=== PATIENT | female | born 1960 | race Caucasian/White ===

== ENCOUNTER 2016-10-05 09:02 | Day surgery (SDC) | payer OTHER ==
[~2016-10-05 09:02] MED LIST: RINGERS SOLUTION,LACTATED 1,000 ML IV PRN
[2016-10-05] MEDS ORDERED: RINGERS SOLUTION,LACTATED 1,000 ML IV ONE (09:40)
--- OUTSIDE RECORDS SUMMARY | 2016-10-05 10:29 | XMS REPORT | Continuity of Care Document ---
:1960 Author Organization [facility] ([facility]) Address [address] [place] [address] Phone [phone] Care Team Providers Name Role Phone Provider, No-Primary Care Primary Care Provider Unavailable Source Comments This disclosure is being made pursuant to the Care Everywhere program, applicable federal and state laws, and may not contain all informaitonavailable regarding this patient.[facility] ([facility]) Active Allergies and Adverse Reactions Allergen Noted Date Severity Reactions Comments Meloxicam 03/29/2011 OTHER Fidgety-could not sit still Piroxicam 03/29/2011 Nausea & Vomiting "made me sick to my stomach" Sulfa (Sulfonamide 03/12/2010 Rash Antibiotics) Current Medications Prescription Sig. Disp. Refills Start Date End Date Status Comp 2 pairs compression 1 Each 0 08/13/2012 Active Stocking,Knee,Regula stockings Indications: r,Sml (T.E.D. edema ANTI-EMBOLISM STOCKING) Misc sodium fluoride 1.1 1 application by Dental 51 g 11 01/09/2013 Active % dental cream route at bedtime. Nothing by mouth for 30 minutes after brushing. Indications: PREVENTION OF DENTAL CARIES ranitidine 150 mg Take 1 Tab by mouth 2 60 Tab 11 03/01/2013 Active tablet times daily. Indications: GASTROESOPHAGEAL REFLUX naproxen 500 mg Take 1 Tab by mouth 2 60 Tab 11 03/19/2013 Active tablet times daily as needed. Indications: PAIN loratadine 10 mg Take 1 Tab by mouth 30 Tab 11 09/30/2013 Active tablet daily. Indications: ALLERGIC RHINITIS topiramate 50 mg Take 1 Tab by mouth at 60 Tab 3 11/29/2013 Active tablet bedtime. Indications: chronic lbp ,obesity bumetanide 0.5 mg Take 1 Tab by mouth 30 Tab 3 12/02/2013 Active tablet daily as needed. Indications: EDEMA Active Problems Problem Noted Date Prepatellar bursitis of right knee, secondary to fall onto right knee 2013 Routine health maintenance 07/03/2012 Overview: Formatting of this note may be different from the original. 1. Last preventive evaluation: 07/05/2012 2. Screening: Colorectal Ca--colonoscopy ordered Lipids; Lab Results Component Value Date CHOL 134 11/24/2010 CHOL 157 11/30/2009 CHOL 154 07/27/2006 TRIG 57 11/24/2010 TRIG 49 11/30/2009 TRIG 55 07/27/2006 HDLP 63 11/24/2010 HDLP 69 11/30/2009 HDLP 66 07/27/2006 Diabetes; Lab Results Component Value Date HBA1C 5.5 11/24/2010 ; Lab Results Component Value Date GLU 103* 05/12/2012 DEXA--N/A 3. Gynecologic History: Menstrual History: LMP ~2008 Method of Contraception: menopausal History of Sexually Transmitted Infections: none History of Abnormal Pap: none Results for orders placed during the hospital encounter of 02/26/10 ---SLUDGE CONTROL ATTENDANT ORDER/REPORT PROCEDURE--- Component Value Range SLUDGE CONTROL ATTENDANT CLIN. HISTORY ORDER PROMPT Value: LMP: ABNL BLEEDING? No STATUS Postmenopausal CONTRACEPTIVES? SLUDGE CONTROL ATTENDANT SURGERY? CA,SITE,TX HPV? Reflex OTHER HISTORY Screening. --- Pap tests are subject to both false negative and false positive results as evidenced by published data. Obtaining periodic Pap tests may minimize the consequence of false negatives. Your patient's results should be interpreted in this context, together with the patient's history and clinical findings. SPECIMEN SUBMITTED LIQUID-BASED PAP, ENDO-ECTO CX STATEMENT OF SPECIMEN ADEQUACY Value: Satisfactory for interpretation Endocervical component present INTERPRETATION Value: Negative for intraepithelial lesion or malignancy ADDITIONAL FINDINGS: Endometrial cells present I have personally reviewed the slides and report for this case. SLUDGE CONTROL ATTENDANT FREE-TEXT COMMENT Value: Nicolas Faulkner, DELVIN(ASCP) Yair Peoples D.O., R3 Krysten Boateng M.D., Fellow SLUDGE CONTROL ATTENDANT DIAGNOSIS SIGNATURE Value: Ace Poole M.D., PhD. (Electronic Signature(s)) Date Reported: 03/03/10 Mammography--normal in 2008, ordered 2011 4. Vaccines and Health Maintenance overdue: Health Maintenance Topic Date Due Vaccination: Hepatitis B (#1) 1960 Vaccination: Hepatitis A (#1) 1961 Vaccination: Pneumovax 23 (Age 18-64) 1980 Skin Cancer Screening (Q5 Years) 1982 Colonoscopy (Q10 Years) 2012 Vaccination: Zoster 2012 Vaccination: Influenza (Seasonal) 10/10/2012 Pap Smear (Annual) 07/03/2013 Mammogram (Annual) 07/04/2013 Breast Exam By Physician (Q2 Years) 07/03/2014 Lipid Screening (Q5 Years) 11/25/2015 Vaccination: Tetanus (Q10 Years) 08/03/2021 Vaccination: Tdap Completed 5. Prevention notes: S/P bilateral knee replacements 04/12/2012 Overview: Bilateral Migraine headache 09/27/2011 GERD (gastroesophageal reflux disease) 09/27/2011 LBP (low back pain) 03/31/2011 Plantar fasciitis, bilateral 06/29/2007 Insomnia, unspecified 06/29/2007 Resolved Problems Problem Noted Date Resolved Date Fall 11/21/2013 11/29/2013 Acute pain and swelling of right knee after recent fall 11/21/2013 11/29/2013 Visit for wound check 05/28/2012 07/03/2012 Primary osteoarthritis of right knee 05/13/2012 07/03/2012 Right knee pain 05/13/2012 07/03/2012 Visit for wound check 04/12/2012 05/13/2012 Knee joint pain 03/30/2012 05/23/2013 Goals of care, counseling/discussion 11/08/2011 05/13/2012 Knee pain, left 05/22/2011 07/03/2012 Physical therapy 04/07/2011 07/03/2012 Left knee DJD 03/31/2011 07/03/2012 Unspecified dental caries 04/05/2008 11/24/2010 Streptococcal sore throat 12/18/2007 11/24/2010 Abnormal mammogram, unspecified 10/02/2006 11/24/2010 Screening for malignant neoplasm of the cervix 09/29/2006 11/24/2010 Absence of menstruation 09/29/2006 11/29/2013 Other screening mammogram 07/27/2006 11/24/2010 Screening for thyroid disorder 07/27/2006 11/24/2010 Screening for diabetes mellitus 07/27/2006 11/24/2010 Screening for lipoid disorders 07/27/2006 11/24/2010 Immunizations Name Dates Previously Given Next Due Influenza, PF 04/12/2012,04/28/2011,05/13/2010 Tdap 08/03/2011 Social History Tobacco Use Types Packs/Day Years Used Date Never Smoker Smokeless Tobacco: Never Used Tobacco Cessation:Counseling Given: Yes Comments: Alcohol Use Drinks/Week oz/Week Comments No Last Filed Vital Signs Vital Sign Reading Time Taken Blood Pressure 128/76 11/29/2013 9:38 AM CDT Pulse 68 11/29/2013 9:38 AM CDT Temperature 35.5 C (95.9 F) 11/29/2013 9:38 AM CDT Respiratory Rate 16 04/05/2013 2:20 PM CDT Height 1.727 m (5' 7.99") 11/29/2013 9:38 AM CDT Weight 112.583 kg (248 lb 3.2 oz) 11/29/2013 9:38 AM CDT Body Mass Index 37.75 11/29/2013 9:38 AM CDT Oxygen Saturation 99% 09/22/2012 8:47 AM LIBRARY ASSOCIATE Plan of Care Patient Goal Type Goal Diet Cut out extra servings Weight Weight below 91 kg (200 lb) Health Maintenance Due Date Last Done Comments HCV Screening 1960 Hepatitis B Vaccine (1 of 3 1960 - Primary Series) MMR Vaccine 1980 Colonoscopy 04/19/2012 Mammogram 08/16/2014 08/16/2013, Additional history exists 01/29/2013, 08/02/2012 Lipid Disorder Screening 11/25/2015 11/24/2010, 11/30/2009, 07/27/2006 Influenza Vaccine: Seasonal 02/15/2016 04/12/2012, (#1) 04/28/2011, 05/13/2010 Cervical Cancer Screening 07/03/2017 07/03/2012, Additional history exists 02/26/2010, 12/12/2007 Td Vaccine 08/03/2021 08/03/2011 Tdap Vaccine Completed 08/03/2011 Results from Last 3 Months Not on file
[2016-10-05 11:20] VITALS: BP 110/62
--- NOTE | 2016-10-05 17:51 | OR ---
Operative Report - Dictated Report Narrative: OPERATIVE REPORT DATE OF OPERATION: 10/05/2016 PREOPERATIVE DIAGNOSIS: No prior dedicated colon studies POSTOPERATIVE DIAGNOSIS: Normal colonoscopy OPERATION: Colonoscopy SURGEON: Mika Calvillo MD ANESTHESIA: MAC Jonathan Valiente CRNA INDICATIONS FOR PROCEDURE: The patient is a 56-year-old female referred for an initial colon screening by Dr. Katelin Araiza. There is no family history of colon cancer. The patient is currently asymptomatic. FINDINGS: Normal colonoscopy NARRATIVE OF PROCEDURE: The patient was identified in the holding area, and prior to the administration of anesthetic, a multidisciplinary timeout was observed. With the patient in the left lateral position and after the administration of intravenous sedation, the perineum was inspected. There was no evidence of pilonidal disease or skin breakdown. The external appearance of the anus was normal. Sphincter tone was good. The flexible fiberoptic colonoscope was inserted into the rectum which was insufflated with air. The rectal mucosa and submucosal vascular pattern appeared normal, the prep was seen to be complete. The scope was advanced through the sigmoid colon, up the descending colon, and around the splenic flexure where the triangular haustral architecture of the transverse colon was seen. The scope was advanced across the transverse colon, around the hepatic flexure to the cecum, where the confluence of tenia and the ileocecal valve were identified. The mucosa at this level appeared normal. The scope was then slowly withdrawn in a circular fashion so that all aspects of colonic mucosa were inspected. The colon was capacious in character but relatively normal in course. The haustral architecture appeared well preserved throughout with no evidence of external compression. The mucosa and submucosal vascular pattern appeared normal, specifically there was no gross evidence to suggest colitis or inflammatory bowel disease and no AV malformations were seen. No diverticulosis was demonstrated. No polyps were encountered. The scope was gradually withdrawn to the level of the rectum. As much insufflated air as possible was removed. The scope was withdrawn from the patient and the procedure terminated. The patient tolerated the anesthetic and procedure well without complication and was transferred back to the ambulatory surgery area awake and in stable condition. The patient remained stable throughout a period of postoperative observation. She denied abdominal discomfort, was able to tolerate by mouth intake, and was up without assistance. I shared the operative findings with the patient and she was given copies of the photographs which appear in the medical record. She was discharged home with instructions not to engage in hazardous activity today , but may resume normal activity tomorrow, and advance diet as tolerated. She is to continue those medications as listed in the history and physical exam. RECOMMENDATION: She should have a digital rectal exam/occult blood determination at the time of any pelvic exam with tentative colon surveillance in 10 years depending upon findings and symptoms. Reviewed and electronically signed
== END 2016-10-05 09:03 | disposition home or self-care (01) ==
LOC: AMB 09:02
PROVIDERS: ATTEND Surgery
PROC: 0DJD8ZZ Inspection of Lower Intestinal Tract, Via Natural or Artificial Opening Endoscopic (ICD-10-PCS; principal; 2016-10-05 09:50)
DX: Z12.11 Encounter for screening for malignant neoplasm of colon (principal); K21.9 Gastro-esophageal reflux disease without esophagitis; Z68.37 Body mass index [BMI] 37.0-37.9, adult

== ENCOUNTER 2016-10-23 16:40 | Emergency (ER) | payer OTHER ==
--- OUTSIDE RECORDS SUMMARY | 2016-10-23 17:52 | XMS REPORT | Continuity of Care Document ---
:1960 Author Organization [facility] ([facility]) Address [address] [place] [address] Phone [phone] Care Team Providers Name Role Phone Minor Page Primary Care Provider [phone] Source Comments This disclosure is being made pursuant to the Care Everywhere program, applicable federal and state laws, and may not contain all informaitonavailable regarding this patient.[facility] ([facility]) Active Allergies and Adverse Reactions Allergen [...] placed during the hospital encounter of 02/26/10 ---PRINT SHOP STENOGRAPHER ORDER/REPORT PROCEDURE--- Component Value Range PRINT SHOP STENOGRAPHER CLIN. HISTORY ORDER PROMPT Value: LMP: ABNL BLEEDING? No STATUS Postmenopausal CONTRACEPTIVES? PRINT SHOP STENOGRAPHER SURGERY? CA,SITE,TX HPV? Reflex OTHER HISTORY Screening. [...] the slides and report for this case. PRINT SHOP STENOGRAPHER FREE-TEXT COMMENT Value: Nicolas Faulkner, [place](ASCP) Yair Peoples D.O., R3 Krysten Boateng M.D., Fellow PRINT SHOP STENOGRAPHER DIAGNOSIS SIGNATURE Value: Ace Poole M.D., PhD. [...] CDT Oxygen Saturation 99% 09/22/2012 8:47 AM LOSS PREVENTION AGENT Plan of Care Patient Goal Type Goal Diet Cut out extra servings Weight Weight below 91 kg (200 lb) Date Type Specialty Providers Description 11/30/2016 Appointment Phan Mcdaniel MD Subj: Appointment [address] [place] [address] [phone] (Fax) Health Maintenance Due Date Last Done Comments [...]
[2016-10-23] MEDS ORDERED: CEPHALEXIN MONOHYDRATE 250 MG CAPSULE PO ONE (18:00)
--- NOTE | 2016-10-23 18:02 | ERNOTE ---
ENT HPI Date of Service: 10/23/16 Presenting Symptoms: other - sore throat Time Seen by Provider: 10/23/16 17:44 Source: patient - Immun/Allergies/Home Medications Immunizations: IMMUNIZATION HX History of Influenza Vaccine Yes Hx Pneumococcal Vaccination No Allergies/Adverse Reactions: Allergies Allergy/AdvReac Type Severity Reaction Status Date / Time amoxicillin trihydrate AdvReac Mild RASH Verified 10/23/16 16:55 [From Augmentin] naproxen AdvReac Mild Nausea Verified 10/23/16 16:55 potassium clavulanate AdvReac Mild RASH Verified 10/23/16 16:55 [From Augmentin] Sulfa (Sulfonamide AdvReac Mild URITICARIA Verified 10/23/16 16:55 Antibiotics) Home Medications: HOME MEDICATIONS Divalproex Sodium [Depakote ER] 500 mg PO QPM 09/26/16 [Last Taken Unknown] Fluticasone Propionate [Flonase] 2 spray NS DAILY 09/26/16 [Last Taken Unknown] Pantoprazole Sodium [Protonix] 40 mg PO DAILY 09/26/16 [Last Taken Unknown] Salsalate [Disalcid] 500 mg PO TID 09/26/16 [Last Taken Unknown] Cephalexin Monohydrate [Keflex] 500 mg PO Q12H #20 cap 10/23/16 [Last Taken Unknown] - History of Present Illness Narrative: 56-year-old female presents to the emergency room for sore throat swollen lymph nodes and general malaise. Patient states that she has felt like she has had a fever but has not checked it at home. Date (Duration): 10/23/16 Severity: Present: mild ENT Location: Present: throat Prearrival Treatment: Present: no prearrival treatment Modifying Factors - Improves: Reports: nothing Modifying Factors - Worsens: Reports: nothing Associated Symptoms - ENT: Reports: fever, malaise, poor fluid intake, sore throat Review of Systems - Review of Systems Constitutional: Present: no symptoms reported EYE: Present: no symptoms reported ENT: Present: sore throat Respiratory: Present: no symptoms reported Cardiology: Present: no symptoms reported Gastrointestinal/Abdominal: Present: no symptoms reported Genitourinary: Present: no symptoms reported Musculoskeletal: Present: no symptoms reported Skin: Present: no symptoms reported Neurological: Present: no symptoms reported Endocrine: Present: no symptoms reported Hematologic/Lymphatic: Present: no symptoms reported, swollen glands Psych: Present: no symptoms reported - Patient's Past Medical History Patient History - Medical: GERD, Migraines, Other Patient History - Cardiac/Respiratory: No pertinent hx Patient History - Cancer: No Hx of Cancer Patient History - Surgical Procedures: Total Knee Replacement, Other Patient History - Other: None LMP (females 10-50): Menopausal - Family History Father Family History - Medical: , No pertinent hx Family History - Cardiac/Respiratory: Other Family History - Cancer: No pertinent family hx Mother Family History - Medical: , No pertinent hx Family History - Cardiac/Respiratory: No pertinent hx Family History - Cancer: Leukemia Grandfather-Maternal Family History - Medical: , No pertinent hx Family History - Cardiac/Respiratory: No pertinent hx Family History - Cancer: Colon Grandmother-Maternal Family History - Medical: , No pertinent hx Family History - Cardiac/Respiratory: No pertinent hx Family History - Cancer: Colon - Social History Living Situations: home Abuse History: No History of abuse Psych History: No pertinent hx Smoking Status: Never smoker Alcohol Use: none Drug Use: none - Immunizations Hx Pneumococcal Vaccination: No History of Influenza Vaccine: Yes Physical Exam - Physical Exam Narrative: Patient's throat is erythematous, swollen lymph nodes General Appearance: Present: wd/wn, alert, no apparent distress Ears, Nose, Throat: Present: other - patient's throat is erythematous Neck: Present: lymphadenopathy (R), lymphadenopathy (L) Respiratory: Present: no respiratory distress, normal breath sounds Cardiovascular/Chest: Present: regular rate, rhythm, no murmur Gastrointestinal/Abdominal: Present: normal bowel sounds, soft Extremity Exam: Present: normal inspection Neurological Exam: Present: alert, oriented Skin Exam: Present: normal color ED Progress - Results and Orders Patient's Lab Results:: I have reviewed the patient's lab results. - Vital Signs Patient's Vital Signs:: I have reviewed the patient's vital signs. Vital Signs: Vital Signs 10/23/16 10/23/16 16:51 17:27 Temperature 37.0 C 36.6 C Pulse Rate 60 58 L Respiratory 16 14 Rate Blood Pressure 119/71 117/61 O2 Sat by Pulse 98 98 Oximetry - Progress/Reassessment Chief Complaint: Sore Throat Progress:: Improved Departure Clinical Impression: Strep sore throat - Departure Disposition: Home Follow Up Needed Condition: Stable Instructions: Strep Throat, Ibep-yo-Dahn Additional Instructions: Continue all previous home medications as directed. Complete all antibiotics as directed. Return to the emergency room if develop fevers that are uncontrolled by [id number] medication. Follow-up with her doctor in the next 2-3 days if necessary. she may use warm salt water gargles to help with throat discomfort. Thorough away your toothbrush after 3 days of antibiotics. Prescriptions: Cephalexin Monohydrate [Keflex] 500 mg PO Q12H #20 cap
[2016-10-23] MEDS ORDERED: CEPHALEXIN MONOHYDRATE 250 MG CAPSULE ONE (18:03)
[2016-10-23 18:11] VITALS: BP 106/68
== END 2016-10-23 18:12 | disposition home or self-care (01) ==
LOC: ER 16:40
DX: J02.0 Streptococcal pharyngitis (principal); K21.9 Gastro-esophageal reflux disease without esophagitis